=== PATIENT | female | born 1975 | race Caucasian/White ===

== ENCOUNTER 2017-07-11 05:55 | Day surgery (SDC) | payer MEDICARE ==
[2017-07-10 14:00] LABS: BASOPHILS 0.1 % (0-2); EOSINOPHILS 1.1 % (0-7); HEMATOCRIT 40.9 % (36.0-48.0); HEMOGLOBIN 13.5 g/dL (12-16); IMMATURE GRANULOCYTES 0.6 % (0-5); MCH 26.4 pg (26.0-34.0); MEAN PLATELET VOLUME 9.9 fL (7.4-10.4); MONOCYTES 4.1 % (2-11); NEUTROPHILS 78.1 % (40-80); PLATELET COUNT 279 10x3/uL (130-400); RBC 5.11 10x6/uL (4.00-5.40); RDW 14.4 % (11.5-14.5); WBC 15.8 10x3/uL (4.8-10.8)
[2017-07-10 14:34] LABS: CALC OSMOLALITY 276 mosm/kg (275-300); CALCIUM 8.8 mg/dL (8.5-10.1); CARBON DIOXIDE 24.8 mmol/L (21.0-32.0); CHLORIDE - SERUM 100 mmol/L (98-107); CREATININE - SERUM 0.8 mg/dL (0.6-1.3); GLUCOSE 200 mg/dL (74-106); POTASSIUM - SERUM 3.6 mmol/L (3.5-5.1); SODIUM 136 mmol/L (136-145); UREA NITROGEN 9 mg/dL (7-18); eGFR NON AFRICAN AMERICAN 83 mL/min (90-120)
[~2017-07-11] VITALS: Ht 162.6 cm; Wt 93.4 kg
--- NOTE | ~2017-07-11 | OP ---
PATIENT NAME: MAYE LEVY MEDICAL RECORD: [id number] :73 LOCATION:[facility] ADMISSION DATE: SURGEON: JENNIFER PINEDA MD DATE OF OPERATION: 07/11/2017 PREOPERATIVE DIAGNOSIS: Recurrent left buttock cyst. POSTOPERATIVE DIAGNOSIS: Recurrent left buttock lipoma. PROCEDURE: Excision of 3 cm left buttock lipoma. SURGEON: Jennifer Pineda MD REPORT OF PROCEDURE: The patient was placed in the right lateral decubitus position and the buttock region was prepped and draped in sterile fashion. An incision was made overlying an area of tissue on the inferior and medial aspect of the left buttock. There was some scar tissue above this, so an elliptical incision was made around to remove the thin scar tissue. Once we got inside, then there was noted to be a lipoma present. The lipoma had many portions extending out into little pockets. Attempt was made to carefully open up the noland of these pockets and take out the lipoma in total. At the conclusion of the case, the lipoma was completely excised and sent off for permanent specimen. We then treated the area with electrocautery to stop any bleeding. The wound was then irrigated out with normal saline. A 10 mL of 0.25% Marcaine with epinephrine was infused into the surrounding tissues, 3-0 Vicryls were used to reapproximate the subcutaneous tissues. A 5-0 Monocryl was used to close the skin. This was then dressed with Dermabond. COMPLICATIONS: None. CONDITION: Stable. ANESTHESIA: General endotracheal and local. BLOOD LOSS: Minimal. TRANSINT:[id number] Voice Confirmation ID: [id number] DOCUMENT ID: [id number] JENNIFER PINEDA MD at 1413 CC: [id number] DICTATION DATE: 07/11/17 0856 PRINT CUTTER: 07/11/17 1104 [facility] 07/11/17 [place] [id number]
[~2017-07-11 05:55] MED LIST: LEXAPRO10 MG PO; MULTIVIT; NEURONTIN 300300 MG PO; OMEGA; OMEPRAZOLE20 M1 PO; TRAZODONE HCL50 MG PO
[2017-07-11 06:29] VITALS: BP 147/90; Ht 162.6 cm; Wt 93.4 kg
[2017-07-11 06:58] LABS: HCG URINE NEGATIVE (NEGATIVE)
[2017-07-11] MEDS ORDERED: HYDROCODONE-APA1 TAB PO (08:52)
== END 2017-07-11 10:37 | disposition home or self-care (01) ==
LOC: D.OPS 05:55
PROVIDERS: Surgery
DX: D17.1 Benign lipomatous neoplasm of skin and subcutaneous tissue of trunk (principal); Z01.812 Encounter for preprocedural laboratory examination